=== PATIENT | male | born 1940 | race Caucasian/White ===

== ENCOUNTER 2016-05-05 13:04 | Inpatient (IN) | payer MEDICARE ==
[~2016-05-05] VITALS: Ht 190.5 cm; Wt 63.5 kg
[2016-05-08] MEDS ORDERED: ROSU20 PO (12:17)
[2016-05-08] MEDS ORDERED: VITA500T PO (12:17)
[2016-05-08] MEDS ORDERED: DIGO0.12 PO (12:17)
[2016-05-08] MEDS ORDERED: FURO40TA PO (12:17)
[2016-05-08] MEDS ORDERED: OXYC1CAP PO (12:17)
[2016-05-08] MEDS ORDERED: APIX2.5T PO (12:17)
[2016-05-08] MEDS ORDERED: FISH1000 PO (12:17)
[2016-05-08] MEDS ORDERED: RAMI5CAP PO (12:17)
[2016-05-08] MEDS ORDERED: POTA99TA PO (12:17)
[2016-05-08] MEDS ORDERED: IPRASOL INH (12:17)
[2016-05-08] MEDS ORDERED: MULT-6 PO (12:17)
[2016-05-08] MEDS ORDERED: PRED10 PO (12:17)
[2016-05-09] VITALS (15 sets, daily range): BP systolic 113–176; BP diastolic 69–98; PULSE 71–105; RESP 16–25; TEMP 97.5–98.2; O2SAT 95–100
[2016-05-09] MEDS ORDERED: ceFAZolin 1,000 MG/NS 100 ML IV SCH ×2 (06:45)
[2016-05-09] MEDS ORDERED: METOPROLOL TARTRATE 25 MG TAB PO PRN (06:45)
[2016-05-09] MEDS ORDERED: LACTATED RINGER'S 1000 ML IV SCH (06:45)
[2016-05-09] MEDS ORDERED: SODIUM CHLORID 0.9% 500 ML IV SCH (06:45)
[2016-05-09] MEDS ORDERED: INSULIN HUMAN REGULAR 1,000 UNITS/10 ML VIAL SQ PRN (06:45)
[2016-05-09] MEDS ORDERED: HEPARIN SODIUM - IV 10,000 UNITS/10 ML VIAL ONE (07:03)
[2016-05-09] MEDS ORDERED: PROTAMINE SULFATE 50 MG/5 ML VIAL ONE (07:03)
[2016-05-09] MEDS ORDERED: HEPARIN SODIUM - SQ 10,000 UNITS/ML VIAL ONE (07:03)
[2016-05-09 07:14] LABS: AUTOMATED NEUTROPHIL # 11.8 TH/MM3 (1.8-7.7); BASOPHIL % 0.1 % (0.0-2.0); EOSINOPHIL % 0.3 % (0.0-4.0); HEMATOCRIT 41.1 % (39.0-51.0); HEMO FLAGS DIFF FINAL; LYMPH % 4.5 % (9.0-44.0); LYMPHOCYTE # 0.6 TH/MM3 (1.0-4.8); MEAN CELL VOLUME 90.1 FL (80.0-100.0); MEAN CORPUSCULAR HEMOGLOBIN 30.9 PG (27.0-34.0); MEAN CORPUSCULAR HGB CONC 34.3 % (32.0-36.0); MONO % 7.4 % (0.0-8.0); NEUT % 87.7 % (16.0-70.0); PLATELET COUNT 194 TH/MM3 (150-450); RED BLOOD COUNT 4.56 MIL/MM3 (4.50-5.90); RED CELL DISTRIBUTION WIDTH 16.2 % (11.6-17.2); WHITE BLOOD COUNT 13.4 TH/MM3 (4.0-11.0)
[2016-05-09 07:24] LABS: APTT (PATIENT) 24.1 SEC (24.3-30.1); PROTHROMBIN TIME - PATIENT 11.3 SEC (9.8-11.6)
[2016-05-09 07:33] LABS: ALT (GPT) 27 U/L (12-78); ANION GAP 9 MEQ/L (5-15); AST (GOT) 29 U/L (15-37); BICARBONATE 32.1 MEQ/L (21.0-32.0); BLOOD UREA NITROGEN 38 MG/DL (7-18); CHLORIDE 96 MEQ/L (98-107); GLOMERULAR FILTRATION RATE 53 ML/MIN (>89); POTASSIUM 4.4 MEQ/L (3.5-5.1); SODIUM (NA) 137 MEQ/L (136-145)
[2016-05-09 07:34] LABS: ALKALINE PHOSPHATASE 53 U/L (45-117); TOTAL BILIRUBIN ADULT 1.1 MG/DL (0.2-1.0)
[2016-05-09] MEDS ORDERED: SUFentanil INJ 250 MCG/5 ML AMP ONE (08:03)
[2016-05-09] MEDS ORDERED: BUPIVACAINE/EPINEPHRINE 0.5% PF 30 ML VIAL INFIL ONE (09:22)
--- NOTE | 2016-05-09 10:38 | EKG ---
Date Performed: 05/09/2016 Time Performed: 07:08:41 PTAGE: 75 years EKG: ATRIAL FIBRILLATION WITH RVR VENTRICULAR PREMATURE COMPLEXES Nonspecific ST-T wave changes Compared to prior tracing no significant change discernable ABNORMAL ECG PREVIOUS TRACING : 01/28/2016 17.04 DOCTOR: Lito Mario Interpretating Date/Time 05/09/2016 10:37:03
[2016-05-09] MEDS ORDERED: fentaNYL CITRATE 250 MCG/5 ML AMP ONE (11:33)
[2016-05-09] MEDS ORDERED: *morphine SULFATE 8 MG/ML PERIprocedure ONLY ONE (11:37)
[2016-05-09] MEDS ORDERED: *LABETALOL HCL 100 MG/20 ML VIAL PERIprocedural Use ONLY ONE (11:43)
[2016-05-09] MEDS ORDERED: ONDANSETRON HCL 4 MG/2 ML VIAL IV PUSH ONE (12:00)
[2016-05-09] MEDS ORDERED: NORMOSOL R INJ 1,000 ML IV ONE (12:00)
[2016-05-09] MEDS ORDERED: IOHEXOL 300 MG/ML 50 ML BTL (for RAD DIAG) IV ONE (12:00)
[2016-05-09] MEDS ORDERED: LACTATED RINGER'S 1000 ML INJ 1,000 ML IV ONE (12:00)
[2016-05-09] MEDS ORDERED: NEOSTIGMINE 3 MG/3 ML SYR IV ONE (12:00)
[2016-05-09] MEDS ORDERED: ETOMIDATE 20 MG/10 ML VIAL IV PUSH ONE (12:00)
[2016-05-09] MEDS ORDERED: IOHEXOL 300 MG/ML 100 ML BTL (for Rad CT) IV ONE (12:00)
[2016-05-09] MEDS ORDERED: MORPHINE SULFATE 4 MG/ML INJ IV PRN (12:15)
[2016-05-09] MEDS ORDERED: ONDANSETRON HCL 4 MG/2 ML VIAL IV PUSH PRN (12:15)
[2016-05-09] MEDS ORDERED: predniSONE 10 MG TAB PO PRN (12:15)
[2016-05-09] MEDS ORDERED: ACETAMINOPHEN/HYDROcodone 325 MG/5 MG TAB PO PRN (12:15)
[2016-05-09] MEDS ORDERED: SODIUM CHLORIDE FLUSH PRN IVF (12:15)
[2016-05-09] MEDS ORDERED: DO NOT ADM ANY ANTICOAGULANT DRUGS XX PRN (12:15)
[2016-05-09] MEDS ORDERED: ACETAMINOPHEN 325 MG TAB PO PRN (12:15)
[2016-05-09] MEDS ORDERED: LACTATED RINGER'S 1000 ML INJ 500 ML IV ONE (12:15)
[2016-05-09] MEDS: POTASSIUM CL 40 MEQ/30 ML LIQ UDC PO SCH (13:00)
[2016-05-09] MEDS: FUROSEMIDE 40 MG TAB PO SCH (14:02)
[2016-05-09] MEDS: DIGOXIN 0.125 MG TAB PO SCH (14:02)
[2016-05-09] MEDS: RAMIPRIL 5 MG CAP PO SCH (14:03)
[2016-05-09] MEDS: ATORVASTATIN 40 MG TAB PO SCH (21:53)
[2016-05-09] MEDS: SODIUM CHLORIDE FLUSH BID IVF SCH (21:53)
[2016-05-10] VITALS (20 sets, daily range): BP systolic 121–183; BP diastolic 68–81; PULSE 74–115; RESP 20–25; TEMP 97.8–98.6; O2SAT 96–98
[2016-05-10] MEDS: APIXABAN 2.5 MG TABLET PO SCH (08:38)
[2016-05-10] MEDS: DIGOXIN 0.125 MG TAB PO SCH (08:38)
[2016-05-10] MEDS: FUROSEMIDE 40 MG TAB PO SCH (08:38)
[2016-05-10] MEDS: SODIUM CHLORIDE FLUSH BID IVF SCH ×2 (08:39→21:00)
[2016-05-10] MEDS: RESP: ALBUTEROL 2.5 MG/IPRATROPIUM 0.5 MG NEB (PRN) NEB ×3 (09:11→17:19)
[2016-05-10] MEDS: RAMIPRIL 5 MG CAP PO SCH (13:42)
[2016-05-10] MEDS: POTASSIUM CL 40 MEQ/30 ML LIQ UDC PO SCH (13:42)
[2016-05-10] MEDS ORDERED: TAMSULOSIN HCL 0.4 MG CAP PO ONE (17:45)
[2016-05-10] MEDS: ATORVASTATIN 40 MG TAB PO SCH (21:30)
[2016-05-11] VITALS (24 sets, daily range): BP systolic 120–156; BP diastolic 60–82; PULSE 70–104; RESP 18–22; TEMP 97.7–98.5; O2SAT 95–100
[2016-05-11] MEDS: RESP: ALBUTEROL 2.5 MG/IPRATROPIUM 0.5 MG NEB (PRN) NEB ×4 (02:16→20:32)
[2016-05-11] MEDS: SODIUM CHLORIDE FLUSH BID IVF SCH ×2 (09:00→20:08)
[2016-05-11] MEDS: FUROSEMIDE 40 MG TAB PO SCH (09:12)
[2016-05-11] MEDS: APIXABAN 2.5 MG TABLET PO SCH (09:12)
[2016-05-11] MEDS: POTASSIUM CL 40 MEQ/30 ML LIQ UDC PO SCH (09:12)
[2016-05-11] MEDS: RAMIPRIL 5 MG CAP PO SCH (09:12)
[2016-05-11] MEDS: DIGOXIN 0.125 MG TAB PO SCH (09:14)
--- NOTE | 2016-05-11 11:46 | RADRPT ---
EXAM DATE/TIME: 05/11/2016 10:44 [place] COMPARISON: CHEST SINGLE AP, January 28, 2016, 17:25. INDICATIONS : Short of breath. MEDICAL HISTORY : Carcinoma, lung. Myocardial infarction. Hypertension. SURGICAL HISTORY : CABG. Pacemaker. valve replacement ENCOUNTER: Initial ACUITY: 1 day PAIN SCORE: 0/10 LOCATION: Bilateral chest FINDINGS: There continues to be some pleural/parenchymal scarring in the right lung base. This is not significa ntly changed compared to the prior study. The left lung is clear and well-aerated. No definite new pa renchymal infiltrates are seen. The heart size is enlarged but stable. There is evidence of previous cardiothoracic surgery. There is a pacemaker overlying the left chest. CONCLUSION: No significant interval change compared to the prior examination with stable pleural/parenchymal scar ring in the right lung base. Johan Saab MD on May 11, 2016 at 11:41 Board Certified Radiologist. This report was verified electronically.
[2016-05-11 11:57] LABS: AUTOMATED NEUTROPHIL # 11.6 TH/MM3 (1.8-7.7); BASOPHIL % 0.1 % (0.0-2.0); HEMATOCRIT 36.1 % (39.0-51.0); HEMO FLAGS DIFF FINAL; LYMPHOCYTE # 0.3 TH/MM3 (1.0-4.8); MEAN CELL VOLUME 88.1 FL (80.0-100.0); MEAN CORPUSCULAR HEMOGLOBIN 30.4 PG (27.0-34.0); MEAN CORPUSCULAR HGB CONC 34.5 % (32.0-36.0); MONO % 7.1 % (0.0-8.0); NEUT % 90.8 % (16.0-70.0); PLATELET COUNT 146 TH/MM3 (150-450); RED BLOOD COUNT 4.09 MIL/MM3 (4.50-5.90); RED CELL DISTRIBUTION WIDTH 15.7 % (11.6-17.2); WHITE BLOOD COUNT 12.8 TH/MM3 (4.0-11.0)
[2016-05-11 12:19] LABS: BICARBONATE 33.6 MEQ/L (21.0-32.0); POTASSIUM 4.1 MEQ/L (3.5-5.1)
[2016-05-11] MEDS: ATORVASTATIN 40 MG TAB PO SCH (20:08)
[2016-05-12] VITALS (16 sets, daily range): BP systolic 131–167; BP diastolic 73–120; PULSE 74–107; RESP 22; TEMP 97.9–99.5; O2SAT 97–99
[2016-05-12] MEDS: RESP: ALBUTEROL 2.5 MG/IPRATROPIUM 0.5 MG NEB (PRN) NEB ×4 (00:56→10:57)
[2016-05-12] MEDS: DIGOXIN 0.125 MG TAB PO SCH (08:35)
[2016-05-12] MEDS: RAMIPRIL 5 MG CAP PO SCH (08:35)
[2016-05-12] MEDS: POTASSIUM CL 40 MEQ/30 ML LIQ UDC PO SCH (08:35)
[2016-05-12] MEDS: FUROSEMIDE 40 MG TAB PO SCH (08:35)
[2016-05-12] MEDS: APIXABAN 2.5 MG TABLET PO SCH (08:36)
[2016-05-12] MEDS: SODIUM CHLORIDE FLUSH BID IVF SCH (08:36)
[2016-05-12] MEDS ORDERED: TAMSULOSIN HCL 0.4 MG CAP PO SCH (09:00)
--- NOTE | 2016-05-12 09:13 | MB ---
cc: JAVIER RENEE MD DATE OF CONSULTATION: 05/12/2016 REASON FOR CONSULTATION Acute postoperative urinary retention. HISTORY OF PRESENT ILLNESS The patient is a 75-year-old male with a history of an abdominal aortic aneurysm status post endovascular repair, who presents with acute postoperative urinary retention. Following surgery the patient had the catheter removed but was unable to start his stream. He is very uncomfortable with lower abdominal pain. A bladder scan was done which showed greater than 900 in his bladder. A Hurd catheter was inserted for over 1400 mL of urine and he immediately felt better. He denies prior episodes of urinary retention in the past. However, he has had a TURP in the past for lower urinary tract symptoms. He states he had been voiding well prior to surgery, only getting up several times at night but had a good stream. Denies history of hematuria, dysuria, incontinence, abdominal pain, flank pain, nausea, vomiting, fever or chills. Denies history of kidney stones. Has had a UTI in the past. He also has a history of constipation and has not passed any flatus since the surgery. PAST MEDICAL HISTORY 1. Coronary disease history. 2. History of AR. 3. History of abdominal aortic aneurysm. 4. COPD. 5. UTI. 6. History of lung cancer. 7. Constipation. 8. History of BPH. PAST SURGICAL HISTORY 1. Status post CABG x3. 2. History of valve replacement. 3. History of pacemaker placement. 4. Status post hernia repair x2. 5. History of TURP. 6. Left hip replacement. FAMILY HISTORY Denies urolithiasis or genitourinary malignancies. SOCIAL HISTORY Drinks caffeine, but denies alcohol, illicit drug or tobacco use. MEDICATIONS Home medications include: 1. Ramipril 5 mg p.o. daily. 2. Eliquis 2.5 mg p.o. daily. 3. Digoxin 0.125 mg daily. 4. Crestor 20 mg p.o. q.h.s. 5. Furosemide 40 mg p.o. daily. 6. Potassium daily. 7. Prednisone 10 mg p.o. p.r.n. respiratory distress. 8. DuoNeb nebulizer, one inhalation q.4h. for shortness of breath. REVIEW OF SYSTEMS See HPI. A 12-point review of systems review of systems was done and otherwise negative. PHYSICAL EXAMINATION VITAL SIGNS: Temperature 98.2, pulse 87, blood pressure . 98% on three liters nasal cannula. GENERAL: He is alert and oriented x3, in no apparent distress. A pleasant and cooperative gentleman who appears his stated age. HEAD: Normocephalic, atraumatic. EYES: No scleral icterus. Extraocular muscles intact. NECK: Supple. Trachea is midline. No JVD. LUNGS: Clear to auscultation bilaterally. No wheezes, rales or rhonchi. HEART: Regular rhythm. ABDOMEN: Soft, nontender, nondistended. BACK: No costovertebral angle tenderness bilaterally. : His penis is uncircumcised. Testes are descended bilaterally, normal size and consistency. He has a Hurd catheter draining concentrated yellow urine. EXTREMITIES: Nontender. No clubbing, cyanosis or edema. SKIN: No ulcers or rashes. PSYCHIATRIC: Normal affect. MUSCULOSKELETAL: Full range of motion x4. Nontender. LABORATORY DATA Labs show a white count 12.8, hemoglobin 12.4, hematocrit 36.1, platelet count 146. Sodium 134, potassium 4.1, chloride 90, bicarb 33.6, BUN 33, creatinine 0.96, glucose 117. IMAGING DATA No current imaging studies. ASSESSMENT The patient is a 75-year-old male with a history of BPH status post TURP in the past, admitted for endovascular repair of an abdominal aortic aneurysm and went into postoperative urinary retention. PLAN Will start the patient on Flomax 0.4 mg daily. Recommend him going home with the catheter in place for at least a week and then he can have a void trial as an outpatient. Recommend treg8 the constipation as well as that will help improve his chances of passing a void trial. Thank you for this consult. Please call with any questions. From the urology standpoint he is cleared for discharge. Javier Renee MD EMF/BT /8:21 AM 8:44 AM
--- NOTE | 2016-05-12 11:24 | MP ---
cc: AUGIE WEBER M.D.RICKDEYVI DATE OF SURGERY 05/09/2016 PREOPERATIVE DIAGNOSIS Abdominal aortic aneurysm POSTOPERATIVE DIAGNOSIS Abdominal aortic aneurysm PROCEDURE Endovascular aneurysm repair SURGEON Augie Weber MD [employer] [place] Estrada ANESTHESIA General endotracheal/local DESCRIPTION OF THE OPERATIVE PROCEDURE With the patient in the supine position, general endotracheal anesthesia was induced, the abdomen, both groins and thighs prepped with Betadine and draped in a sterile fashion. One gram of Ancef was administered intravenously and following a protocol time-out, skin and subcutaneous tissue overlying the proposed right and left common femoral access sites preemptively infiltrated with 0.5% Marcaine with epinephrine. The right and left common femoral arteries were accessed identically as follows: 18 gauge needles were inserted into the right and left mid common femoral lumens under ultrasound guidance, J-wires advanced under fluoroscopic navigation into the iliac arteries and 7-[place] hemostatic sheaths deployed bilaterally. Pre-positioned Perclose devices were placed at the 10 and 2 o'clock positions bilaterally followed by replacement of the 7-[place] sheath. The angled glide wires were then navigated into the suprarenal aorta and exchanged over Berenstein catheters for Amplatz wires which were parked within the descending thoracic aorta. 18 and 12-[place] hemostatic sheaths were then deployed via the right and left common femoral sites respectively and the patient systemically heparinized with 5000 units. A marker pigtail catheter was advanced via the left femoral sheath to the suprarenal aorta. Aortogram accurately delineated the origins of both renal arteries. The main body endoprosthesis was then advanced via the right femoral sheath, positioned immediately distal to the origin of the renal arteries and pre-deployed at the level. The contralateral gate was engaged with a Berenstein angle glide wire combination. A compliant balloon was advanced into the endoprosthetic lumen and partially inflated to ensure appropriate positioning, followed by retrograde diluted contrast injection via the left femoral sheath to allow appropriate selection of contralateral leg length. The appropriate contralateral leg was deployed. Repeat aortogram again re-identified the origin of the renal arteries and completion of the device deployment was accomplished. This was followed by balloon dilatation of the aortic and iliac seal zone as well as all endoprosthetic overlap areas. Completion angiogram revealed a tight IA endoleak along the left collateral heads the aortic seal zone. Despite repeated ballooning, the endoleak persisted. Thus, a 30 mm cuff was delivered immediately below the renal artery origins and forcefully balloon dilated. Repeat angiogram revealed no residual endoleak or any evidence of technical defects. Rapid flow was maintained into both iliac and femoral arteries. It should be noted that the patient was systemically heparinized with 5000 units after placement of the hemostatic sheaths. The hemostatic sheaths were removed at the completion of procedure and hemostasis adequately achieved quickly with the pre-positioned Perclose devices. Heparin was reversed with 20 mg of protamine. Strict hemostasis was assured. Dorsalis pedis pulses remained easily palpable bilaterally. The patient returned to the recovery room in stable condition having tolerated the procedure well. MD VICKY Dewey/OMAR /6:34 PM /11:15 AM
--- NOTE | 2016-05-12 13:54 | HHI.FF ---
Face to Face Verification Diagnosis: (1) AAA (abdominal aortic aneurysm) without rupture (2) Renal insufficiency (3) COPD exacerbation (4) CHF (congestive heart failure) (5) CAD in [place] artery (6) Atrial fibrillation Physical Therapy Order: Evaluate and Treat, Improve ambulation, Strength and gait training I have seen patient Hayes Vargas on 05/12/16. My clinical findings support the need for the requested home health care services because: Ltd mobility - disease progression Deconditioned w/ increased weakness Med compliance is questionable Need for psychosocial assistance I certify that my clinical findings support that this patient is homebound because: Impaired cognitive ability/safety Unsafe to leave home unassisted Unable to use public transportation Lalo Muhammad DO May 12, 2016 13:54
[2016-05-12] MEDS ORDERED: TAMS5CAP PO (15:55)
--- NOTE | 2016-07-27 14:37 | MD ---
cc: AUGIE HAMMOND ADMISSION DATE: 05/09/2016 DISCHARGE DATE: 05/12/2016 DISCHARGE DIAGNOSES 1. Endovascular for correction abdominal aortic aneurysm - 5.5 cm diameter. 2. Chronic renal insufficiency. 3. COPD - status post chemo radiation therapy for lung cancer. 4. Congestive heart failure. 5. Coronary artery disease 6. Chronic atrial fibrillation. HISTORY OF PRESENT ILLNESS: This 76-year-old for correction this 75-year-old male old has an enlarging, asymptomatic abdominal aortic aneurysm. The aneurysm has been monitored for many years and most recent ultrasound and CT scans demonstrate a enlargement to 5.5 cm E maximal diameter. He was hospitalized for endovascular repair. PAST MEDICAL HISTORY: 1. His past history is significant for hypertension, Hypercholesterolemia 2. Lung cancer requiring chemo radiation therapy 2011. 3. He has significant COPD along with coronary artery disease status post myocardial infarction with PTCA 1997. 4. TURP 2003 5. Pacemaker placement 2006 6. Coronary artery bypass with valve replacement 2006. As result of his (medical problems, he now has become somewhat chronically debilitated with cognitive decline. Physical findings and lab data are documented in the admission summary. HOSPITAL COURSE Mr. Vargas was prepared for and on the day of admission underwent endovascular aneurysm repair without complication. Postprocedure, he developed urinary retention requiring replacement of his Hurd catheter. Urology was consulted. He also expressed extreme fatigue and poor appetite. Dr. Lalo Muhammad was consulted to assist with his medical management. Details are outlined in Dr. Muhammad as consultation note. By the second postprocedure day, he felt better. He was tolerating a heart healthy diet, ambulating with assistance. Plans were to leave the Hurd in place to be removed on an outpatient basis by the urologist. His lungs were clear, cardiac rhythm remained irregular with slow ventricular response. Abdomen: Benign and his neurological exam was normal. Peripheral perfusion remained unchanged. DISPOSITION Mr. Hairston was discharged home with Home Health Care to evaluate daily, assist with improving ambulation strength and gait training - physical therapy. We discussed appropriate home care restrictions, diet and medications. Medications are detailed in the home medications instruction form. I will see him in followup in my office in 2 weeks or sooner if needed. MD VICKY Dewey/marc Jaeger: 07/21/2016/4:44 PM /1:52 PM
== END 2016-05-12 16:45 | disposition home health service (06) | DRG 269 ==
LOC: HSDI 05-09 05:54 → HCPC 05-09 13:37
PROVIDERS: ADMIT Surgery Vascular Surgery; ATTEND Surgery Vascular Surgery
PROC: 04V03DZ Restriction of Abdominal Aorta with Intraluminal Device, Percutaneous Approach (ICD-10-PCS; principal; 2016-05-09 08:26)
PROC: 0T9B70Z Drainage of Bladder with Drainage Device, Via Natural or Artificial Opening (ICD-10-PCS; 2016-05-11)
DX: I71.4 Abdominal aortic aneurysm, without rupture (principal); J44.9 Chronic obstructive pulmonary disease, unspecified; I25.10 Atherosclerotic heart disease of native coronary artery without angina pectoris; N99.89 Other postprocedural complications and disorders of genitourinary system; R33.8 Other retention of urine; I25.2 Old myocardial infarction; Z85.118 Personal history of other malignant neoplasm of bronchus and lung; Z92.21 Personal history of antineoplastic chemotherapy; Z92.3 Personal history of irradiation; Z95.1 Presence of aortocoronary bypass graft; Z95.0 Presence of cardiac pacemaker; Z87.440 Personal history of urinary (tract) infections; Z95.2 Presence of prosthetic heart valve; Z96.642 Presence of left artificial hip joint
CPT/HCPCS: 71010; 75630; 76937; 80048; 80053; 85025; 85610; 85730; 86850; 86900; 86901; 86920; 93005; 94640; 94664; C1725; C1769; J0690; J1644; J2270; J2405; J2710; J2720; J3010; J7120; Q9967